=== PATIENT | male | born 1950 | race Caucasian/White ===

== ENCOUNTER 2018-01-13 08:06 | Emergency (ER) | payer OTHER ==
[~2018-01-13] VITALS: Ht 170.2 cm; Wt 86.2 kg
[2018-01-13 08:13] VITALS: BP 152/81
--- NOTE | 2018-01-13 08:56 | ED GENERAL ADULT ---
History of Present Illness General Chief Complaint: General Adult Stated Complaint: BLEEDING WOUND TO SCROTOM Source: patient Exam Limitations: no limitations Vital Signs & Intake/Output Vital Signs & Intake/Output Vital Signs Date Time Temp Pulse Resp B/P B/P Pulse O2 O2 Flow FiO2 Mean Ox Delivery Rate 01/13 0813 97.5 82 20 152/81 99 Room Air Allergies Coded Allergies: No Known Allergies (01/13/18) Triage Note: PT STATES HE HAD A SCAB ON HIS SCROTUM BUT IT BROKE OFF AND CONTINUES TO BLEED. WOUND NOT VISUALIZED IN TRIAGE Triage Nurses Notes Reviewed? yes Onset: Morning Duration: hour(s): Timing: single episode today Injury Environment: home Severity: mild HPI: 67yoM w/ no known pmhx except for occasional indigestion p/w complaints of scrotal bleeding. Patient noticed a scab on his left scrotum this morning. He picked the scab and started bleeding. He believes he might have bled out about 1/4 cup of bleed. He denies any associated sx. Patient was concerned and so came to the ER. He also has a hx of hemorrhoidal bleeds. He denies any trauma to his scrotum, any fevers, chills, N/V or pain. He also denies dysuria, hematuria or frequency. He is not on any medications except for occasional Mylanta for indigestion. (Elodia-Freeman STUDENT,Jose) Reconcile Medications No Known Home Medications Modifying Factors: Improves With: rest. (Esteban RUBY,Francois) Past History Travel History Traveled to [place] past 21 day No Medical History Any Pertinent Medical History? see below for history Surgical History Surgical History: non-contributory Psychosocial History What is your primary language French Tobacco Use: Quit >30 days ago ETOH Use: occasional use Illicit Drug Use: denies illicit drug use Family History Hx Contributory? Yes (Opare-Freeman STUDENTJose) Review of Systems Review of Systems Constitutional: Reports: see HPI. Denies: chills, diaphoresis, fever, malaise, weakness. EENTM: Denies: no symptoms. Respiratory: Denies: no symptoms. Cardiovascular: Denies: no symptoms. GI: Denies: no symptoms. Genitourinary: Denies: discharge, dysuria, frequency, hematuria, pain. Musculoskeletal: Denies: no symptoms. Skin: Denies: no symptoms. (Jose Bowen) Review of Systems Genitourinary: Reports: see HPI. Neurological/Psychological: Reports: no symptoms. Hematologic/Endocrine: Reports: see HPI, bleeding. Immunologic/Allergic: Reports: no symptoms. All Other Systems: Reviewed and Negative (Francois Orellana MD) Physical Exam Physical Exam General Appearance: well developed/nourished, no apparent distress, alert, awake , comfortable Head: atraumatic Eyes: Bilateral: normal appearance, PERRL. Respiratory: normal breath sounds Cardiovascular: murmur Peripheral Pulses: 3+ radial (R), 3+ radial (L) Core Measures ACS in differential dx? No CVA/TIA Diagnosis: No Sepsis Present: No Sepsis Focused Exam Completed? 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 Skin: normal color Lymphatic: no anterior cervical rena (Francois Orellana MD) Progress Differential Diagnoses I considered the following diagnoses in my evaluation of the patient: [Trauma, varicose vein bleeding, puncture wound] Plan of Care: 8:35AM No active bleeding on exam. Likely varicose bleeding since patient has hemorrhoidal bleeds and varicose veins on lower extremities. Will observe patient for 1hr. If no active bleeding will discharge patient home with return precautions. 9:33AM Patient re-examined. No interval changes, no bleeding. Return precautions RE varicose vein bleeds, application of direct pressure reviewed. Patient to follow w/ PCP. He was also made aware of 2/6 holosysotolic heart murmur. Initial ED EKG: none (Jose Bowen) Differential Diagnoses I considered the following diagnoses in my evaluation of the patient: (Francois Orellana MD) Departure Departure Disposition: HOME OR SELF CARE Condition: Stable Departure Forms: Customer Survey General Discharge Information (Jose Bowen) Departure Time of Disposition: 938 Clinical Impression Primary Impression: Scrotal bleeding Referrals: Rashawn RUBY,Royer Pantoja (PCP/Family) Nghia Wallace MD Call for urology follow up Prescriptions: Current Visit Scripts No Known Home Medications Resident Co-Sign Statement Statement: ED Attending supervision documentation- x I saw and evaluated the patient. I have also reviewed all the pertinent lab results and diagnostic results. I agree with the findings and the plan of care as documented in the Resident's documentation. [] I have reviewed the ED Record and agree with the Resident's documentation. [] Additions or exceptions (if any) to the Resident's note and plan are summarized below: [] (Francois Orellana MD) Critical Care Note Critical Care Note Critical Care Time: 30-74 min (Jose Bowen) ED Attending Observation Initial Observation Note: I have seen and personally examined RAND CHAPIN on 01/13/18 at 0855. I agree with the current emergency department documentation. The disposition (admission or discharge) is uncertain at this time, he needs a period of observation for the following reason(s): The ED Nurse caring for this patient has been personally informed as to what the patient is being observed for. (Jose Bowen)
== END 2018-01-13 09:53 ==
LOC: ERH 08:06
DX: N50.1 Vascular disorders of male genital organs (principal)